=== PATIENT | female | born 1950 | race Caucasian/White ===

== ENCOUNTER → 2018-10-22 | Day surgery (SDC) | payer OTHER, SELFPAY | END | disposition home or self-care (01) | PROVIDERS: PCP Internal Medicine; Visit Provider Internal Medicine Gastroenterology | DX: Z12.11 Encounter for screening for malignant neoplasm of colon (principal); K62.7 Radiation proctitis; N94.89 Other specified conditions associated with female genital organs and menstrual cycle; K62.89 Other specified diseases of anus and rectum; W90.8XXA Exposure to other nonionizing radiation, initial encounter; Z85.048 Personal history of other malignant neoplasm of rectum, rectosigmoid junction, and anus; K21.9 Gastro-esophageal reflux disease without esophagitis; K29.50 Unspecified chronic gastritis without bleeding; K31.819 Angiodysplasia of stomach and duodenum without bleeding; Q27.33 Arteriovenous malformation of digestive system vessel; I10 Essential (primary) hypertension; E78.5 Hyperlipidemia, unspecified; E03.9 Hypothyroidism, unspecified; F17.210 Nicotine dependence, cigarettes, uncomplicated; Z92.21 Personal history of antineoplastic chemotherapy; Z92.3 Personal history of irradiation | CPT/HCPCS: 43239; G0105; 74270; 88305; J2704; J7120 ==

== ENCOUNTER 2019-08-23 11:45 | Outpatient (CLI) | payer OTHER, SELFPAY ==
--- NOTE | ~2019-08-23 | XR_ITS ---
EXAMINATION: XR skull min 4V DATE: 08/23/2019 12:15 INDICATION: Anterior skull bump. TECHNIQUE: 4 views of the skull were obtained. COMPARISON: None. FINDINGS: Bone alignment is normal. No fracture. No abnormal mass. IMPRESSION: 1. Normal skull. Reviewed, dictated and finalized at location A. L TRANSFERRER IMPRESSION: 1. Normal skull.
== END 2019-08-23 11:46 ==
PROVIDERS: PCP Internal Medicine; Visit Provider Internal Medicine
DX: M89.8X9 Other specified disorders of bone, unspecified site (principal)
CPT/HCPCS: 70260

== ENCOUNTER 2020-12-16 11:10 | Outpatient (CLI) | payer OTHER, SELFPAY ==
--- NOTE | ~2020-12-16 | XR_ITS ---
XR knee LT 2V 12/16/2020 11:49 Indication: Left knee pain Procedure: 4 views left knee Comparison: No prior studies for comparison. Findings: No fracture, subluxation or dislocation. No joint effusion. No radiopaque foreign bodies. T here is anatomic alignment. No joint space narrowing. Impression: 1: No significant bone or joint abnormality. Reviewed, dictated and finalized at location B. Impression: 1: No significant bone or joint abnormality.
--- NOTE | ~2020-12-16 | XR_ITS ---
EXAMINATION: XR lumbar spine 2-3V DATE: 12/16/2020 11:49 INDICATION: Lumbar radiculopathy. TECHNIQUE: 3 views of lumbar spine were obtained. COMPARISON: Lumbar spine radiographs 02/14/2017 FINDINGS: There is 3 mm anterolisthesis of L3 on L4 and 5 mm anterolisthesis of L4 on L5 and L5 on S1 . Vertebral body heights are normal. There is mildly decreased disc height at L4-L5. There is severe bilateral facet joint osteoarthritis from L3-L4 through L5-S1. Surgical clips overlie right pelvis. IMPRESSION: 1. Moderate lumbar spondylosis. Reviewed, dictated and finalized at location A.
--- NOTE | ~2020-12-16 | XR_ITS ---
XR knee RT 2V 12/16/2020 11:49 INDICATION: Right knee pain PROCEDURE: 2 views right knee COMPARISON: No prior studies for comparison. FINDINGS: Fracture, dislocation or subluxation is not identified. The soft tissues appear within norm al limits. No foreign bodies are identified. IMPRESSION: 1: NO ACUTE BONE OR JOINT ABNORMALITY IDENTIFIED. Reviewed, dictated and finalized at location B.
== END 2020-12-16 11:11 ==
PROVIDERS: PCP Internal Medicine; Visit Provider Pain Medicine Interventional Pain Medicine
DX: M47.27 Other spondylosis with radiculopathy, lumbosacral region (principal); M25.562 Pain in left knee; M25.561 Pain in right knee
CPT/HCPCS: 72100; 73560

== ENCOUNTER 2021-07-26 14:10 | Outpatient (CLI) | payer OTHER, SELFPAY ==
--- NOTE | ~2021-07-26 | MM_ITS ---
EXAMINATION: MM screening ulisses BI w laura HISTORY: Screening TECHNIQUE: Craniocaudal and mediolateral oblique 3-D tomosynthesis images were obtained and synthetic 2-D images were generated. CAD analysis was submitted and interpreted. COMPARISON: No prior mammogram is available for comparison at this institution. BREAST PARENCHYMAL COMPOSITION: There are scattered areas of fibroglandular density. FINDINGS: There is no evidence of suspicious mass, calcification, or architectural distortion to sugg est malignancy in either breast. There has been no suspicious interval change. IMPRESSION: 1. No mammographic evidence of malignancy. 2. Recommend routine screening mammography in one year. BI-RADS Category 1: Negative Reviewed, dictated and finalized at location A. SAW OPERATOR
== END 2021-07-26 14:11 | disposition home or self-care (01) ==
LOC: ANHIMG 14:12
PROVIDERS: PCP Internal Medicine; Visit Provider Internal Medicine
DX: Z12.31 Encounter for screening mammogram for malignant neoplasm of breast (principal)
CPT/HCPCS: 77063; 77067